=== PATIENT | female | born 1980 | race Caucasian/White ===

== ENCOUNTER 2024-03-30 13:24 | Outpatient (CLI) | payer BC | END 2024-03-30 13:25 | disposition home or self-care (01) | LOC: CSHMAMMO 13:24 | PROVIDERS: ATTEND Family Medicine | DX: Z12.31 Encounter for screening mammogram for malignant neoplasm of breast (principal) | CPT/HCPCS: 77063; 77067 ==

== ENCOUNTER 2024-05-30 12:09 | Outpatient (CLI) | payer BC ==
[~2024-05-30 12:09] MED LIST: Magnevist 469MG/ML 20 ML VIAL ONE
== END 2024-05-30 12:10 | disposition home or self-care (01) ==
LOC: CSHMRI 12:09
PROVIDERS: ATTEND Physician Assistant
DX: H81.20 Vestibular neuronitis, unspecified ear (principal); H83.92 Unspecified disease of left inner ear
CPT/HCPCS: 70553

== ENCOUNTER 2024-11-06 12:33 | Outpatient (CLI) | payer BC | END 2024-11-06 12:34 | disposition home or self-care (01) | LOC: CSHULT 12:33 | PROVIDERS: ATTEND Family Medicine | DX: R63.5 Abnormal weight gain (principal); D17.24 Benign lipomatous neoplasm of skin and subcutaneous tissue of left leg | CPT/HCPCS: 76999 ==